=== PATIENT | female | born 1975 | race African-American/Black ===

== ENCOUNTER 2017-11-22 08:45 | Outpatient (CLI) | payer BC ==
--- NOTE | 2017-11-22 15:28 | Ultrasound Report ---
Limited abdominal ultrasound: Abnormal liver function studies. The liver is slightly increased in echogenicity. No focal mass identified. There is no obvious hepatic enlargement but this is difficult to assess. The gallbladder contains a couple of echodensities with some shadowing the larger measuring approximately 1.4 cm. The gallbladder wall was not thickened. There is no pericholecystic fluid. The CBD diameter is 4.9 mm. The right renal length is 9.9 cm and unremarkable. The proximal abdominal aorta diameter is 1.6 cm. Impression: 1. The hepatic findings are consistent with steatosis. 2. Cholelithiasis.
== END 2017-11-22 08:46 | disposition home or self-care (01) ==
LOC: US 08:45
PROVIDERS: ATTEND Internal Medicine
DX: K80.20 Calculus of gallbladder without cholecystitis without obstruction (principal)
CPT/HCPCS: 76700

== ENCOUNTER 2018-08-19 07:49 | Outpatient (CLI) | payer BC ==
--- NOTE | 2018-08-19 09:17 | Ultrasound Report ---
Right mammogram and right breast ultrasound: Call back for right asymmetry. Whole breast and lateral spot compression imaging is performed as well as CC and exaggerated CC images and whole breast lateral projection. The additional images fail to confirm the persistent presence of the previously identified asymmetry. On most of the images the parenchymal pattern in this area appears unremarkable although heterogeneously dense. Ultrasound of the upper outer quadrant in the area of concern shows no abnormality. Impression: Benign breast tissue. Recommendation: Annual mammogram followup. BI-RADS CATEGORY: 1 = Negative ACR BI-RADS MAMMOGRAPHIC CODES: 0 = Needs additional imaging evaluation; 1 = Negative; 2 = Benign; 3 = Probably benign; 4 = Suspicious; 5 = Malignant; 6 = Known biopsy-proven malignancy COMMENT: 1. Dense breast tissue, i.e., adenosis, fibrocystic changes, etc., may obscure an underlying neoplasm. 2. Approximately 10% of cancers are not detected with mammography. 3. A negative mammography report should not delay biopsy if a clinically suspicious mass is present.
--- NOTE | 2018-08-19 10:11 | Ultrasound Report ---
PELVIC ULTRASOUND - TRANSVAGINAL INDICATION: Pelvic pain. COMPARISON: 03/25/2018. FINDINGS: Transvaginal pelvic sonography performed in this patient with LMP of 08/06/2018 again demonstrates a 11.1 x 7.5 x 7.8 cm anteverted uterus with few dominant fibroids as follows: 1. Largest fundal fibroid is approximately 7 x 6.2 x 6.9 cm. 2. A smaller posterior fundal fibroid is 3.5 x 1.3 x 4.2 cm. Bilaminar endometrial thickness towards the fundus approximately 1 cm, endovaginal image 38 with resolution of endometrial echogenicity/possibly hemorrhagic product. No significant pelvic free fluid. Few small nabothian cysts again noted. Right ovary measures 3.3 x 2.5 x 2.5 cm and now demonstrates a 1.7 cm dominant follicular cyst. Left ovary is 4.3 x 1.9 x 2.7 cm with a 2.5 x 1.2 cm follicular cyst now posteriorly, endovaginal image 21. CONCLUSION: Myomatous uterus again noted with physiologic appearance of the endometrium and the ovaries, as described. Thank you for the opportunity to participate in this patient's care.
== END 2018-08-19 07:50 | disposition home or self-care (01) ==
LOC: MAMMO 07:49
PROVIDERS: ATTEND Internal Medicine
DX: D25.9 Leiomyoma of uterus, unspecified (principal); N83.202 Unspecified ovarian cyst, left side; N83.201 Unspecified ovarian cyst, right side
CPT/HCPCS: 76830

== ENCOUNTER 2019-03-02 08:05 | Outpatient (CLI) | payer BC ==
[2019-03-02 08:23] LABS: Hemoglobin 9.8 gm/dl (10.1-14.3); Mean Corpuscular HGB Conc 31 % (30-34); Platelet Count 339 K/mm3 (140-440); Red Blood Count 5.16 M/mm3 (3.65-5.03)
[2019-03-02 08:30] LABS: Mean Corpuscular Volume 62 fl (79-97); Red Cell Distribution Width 24.6 % (13.2-15.2)
[2019-03-02 08:36] LABS: INR 1.27 (0.87-1.13)
[2019-03-02 08:51] LABS: BUN/Creatinine Ratio 15; Blood Urea Nitrogen 6 mg/dL (7-17); Calcium 9.9 mg/dL (8.4-10.2); Hemolysis Index 0
== END 2019-03-02 08:06 | disposition home or self-care (01) ==
LOC: LAB 08:05
PROVIDERS: ATTEND Internal Medicine
DX: Z01.812 Encounter for preprocedural laboratory examination (principal); D25.9 Leiomyoma of uterus, unspecified; D46.4 Refractory anemia, unspecified
CPT/HCPCS: 36415; 80048; 84702; 85027; 85610

== ENCOUNTER 2019-05-11 07:42 | Outpatient (CLI) | payer BC ==
[2019-05-11 08:12] LABS: Basophils % (Auto) 0.3 % (0.0-1.8); Eosinophils # (Auto) 0.1 K/mm3 (0.0-0.4); Eosinophils % (Auto) 1.9 % (0.0-4.3); Hematocrit 35.6 % (30.3-42.9); Hemoglobin 11.1 gm/dl (10.1-14.3); Lymphocytes # (Auto) 2.2 K/mm3 (1.2-5.4); Lymphocytes % (Auto) 29.5 % (13.4-35.0); Mean Corpuscular HGB Conc 31 % (30-34); Monocytes # (Auto) 0.6 K/mm3 (0.0-0.8); Monocytes % (Auto) 7.4 % (0.0-7.3); Platelet Count 328 K/mm3 (140-440); Red Blood Count 5.49 M/mm3 (3.65-5.03); Red Cell Distribution Width 14.6 % (13.2-15.2)
[2019-05-11 08:26] LABS: Mean Corpuscular Volume 65 fl (79-97)
[2019-05-11 08:33] LABS: Alanine Aminotransferase 54 units/L (7-56); Albumin 4.4 g/dL (3.9-5); BUN/Creatinine Ratio 20; Blood Urea Nitrogen 8 mg/dL (7-17); Calcium 9.4 mg/dL (8.4-10.2); HDL Cholesterol 45 mg/dL (40-59); Hemolysis Index 0; LDL Cholesterol,Direct 49 mg/dL (50-130)
[2019-05-16 14:43] LABS: Vitamin D, 25-OH, D2 <4 ng/mL
== END 2019-05-11 07:43 | disposition home or self-care (01) ==
LOC: LAB 07:42
PROVIDERS: ATTEND Internal Medicine
DX: E55.9 Vitamin D deficiency, unspecified (principal); E11.9 Type 2 diabetes mellitus without complications; D50.9 Iron deficiency anemia, unspecified; E78.00 Pure hypercholesterolemia, unspecified
CPT/HCPCS: 36415; 80053; 80061; 82306; 83036; 85025